=== PATIENT | female | born 1950 | race Caucasian/White ===

== ENCOUNTER 2020-02-09 06:26 | Day surgery (SDC) | payer MEDICARE, OTHER ==
[2020-02-09] MEDS ORDERED: Lidocaine 1% PF 2 ML SDV INJECT ONE (06:27)
[2020-02-09] MEDS ORDERED: Propofol 200 MG/20 ML SDV IV ONE (06:27)
[2020-02-09] MEDS ORDERED: Sodium Chloride 0.9% 10 ML Syringe FLUSH PRN (08:00)
[2020-02-09] MEDS ORDERED: Lactated Ringers 1,000 ML IV SCH (08:00)
[2020-02-09] MEDS ORDERED: Simethicone Drops 40 MG/0.6 ML 30 ML Bottle ONE (08:04)
--- NOTE | 2020-02-09 08:20 | PCM.OPNOTE ---
- General Post-Op/Procedure Note Date of Surgery/Procedure: 02/09/20 Operative Procedure(s): c scope Findings: nl exam Pre Op Diagnosis: screening Post-Op Diagnosis: nl exam Anesthesia Technique: MAC Primary Surgeon: Fred Martinez Anesthesia Provider: Rickey Coleman Pathology: none Complications: None Condition: Good Free Text/Narrative:: see dictation
[2020-02-09 09:01] VITALS: BP 122/70; PULSE 62
--- NOTE | 2020-02-09 11:56 | OR ---
DATE OF OPERATION: 02/09/2020 SURGEON: Fred Martinez MD PROCEDURE PERFORMED: Colonoscopy. PREOPERATIVE DIAGNOSIS: Routine colon cancer screening. POSTOPERATIVE DIAGNOSIS: Normal exam. INDICATIONS FOR PROCEDURE: This is a 69-year-old white female who presents for screening colonoscopy. She was offered and accepted same. DESCRIPTION OF OPERATION: After an excellent IV sedation was administered, digital rectal exam was performed. No marked abnormality was noted. Flexible colonoscope was inserted and advanced to the cecum. Prep was excellent. Following findings were noted: Ascending colon, unremarkable. Transverse colon, unremarkable. Descending colon, unremarkable. Sigmoid and rectum, unremarkable. The patient tolerated the procedure well. RECOMMENDATIONS: Given her age, a scope can be considered in 10 years. Follow up p.r.n. /[id number] /DEVI
== END 2020-02-09 09:04 | disposition home or self-care (01) ==
LOC: FB.SDS 06:26
PROVIDERS: ATTEND Surgery
DX: Z12.11 Encounter for screening for malignant neoplasm of colon (principal); E78.49 Other hyperlipidemia; I10 Essential (primary) hypertension; K21.9 Gastro-esophageal reflux disease without esophagitis; Z11.59 Encounter for screening for other viral diseases; Z79.899 Other long term (current) drug therapy; Z86.010 Personal history of colon polyps; Z98.890 Other specified postprocedural states
CPT/HCPCS: 00811-QZ; A9270-GY; J2001; J2704; J7120; U0002

== ENCOUNTER 2022-05-07 08:20 | Day surgery (SDC) | payer MEDICARE, OTHER ==
[2022-05-07] MEDS ORDERED: fentaNYL 100 MCG/2 ML SDV IV ONE (08:21)
[2022-05-07] MEDS ORDERED: Midazolam 1 MG/ML 2 ML SDV IV ONE (08:21)
[2022-05-07] MEDS ORDERED: Sodium Chloride 0.9% 10 ML Syringe FLUSH PRN (08:30)
[2022-05-07] MEDS ORDERED: Lactated Ringers 1,000 ML IV PRN (08:30)
[2022-05-07] MEDS ORDERED: acetaZOLAMIDE 500 MG Cap.ER PO ONE (10:30)
[2022-05-07 15:24] VITALS: BP 122/76; PULSE 65
== END 2022-05-07 10:40 | disposition home or self-care (01) ==
LOC: FB.SDS 08:20
PROVIDERS: ATTEND Ophthalmology
DX: H25.813 Combined forms of age-related cataract, bilateral (principal); H35.3131 Nonexudative age-related macular degeneration, bilateral, early dry stage; H04.123 Dry eye syndrome of bilateral lacrimal glands; H52.13 Myopia, bilateral; H52.223 Regular astigmatism, bilateral; H52.202 Unspecified astigmatism, left eye; I10 Essential (primary) hypertension; M35.3 Polymyalgia rheumatica; E78.49 Other hyperlipidemia; Z79.899 Other long term (current) drug therapy; E78.5 Hyperlipidemia, unspecified; E66.9 Obesity, unspecified; Z98.890 Other specified postprocedural states
CPT/HCPCS: 00142; 66984; A9270; J2250; J3010

== ENCOUNTER 2022-05-21 08:22 | Day surgery (SDC) | payer MEDICARE, OTHER ==
[2022-05-21] MEDS ORDERED: Sodium Chloride 0.9% 10 ML Syringe IV ONE (08:23)
[2022-05-21] MEDS ORDERED: fentaNYL 100 MCG/2 ML SDV IV ONE (08:23)
[2022-05-21] MEDS ORDERED: Midazolam 1 MG/ML 2 ML SDV IV ONE (08:23)
[2022-05-21] MEDS ORDERED: Lactated Ringers 1,000 ML IV PRN (08:30)
[2022-05-21] MEDS ORDERED: Sodium Chloride 0.9% 10 ML Syringe FLUSH PRN (08:30)
[2022-05-21] MEDS ORDERED: acetaZOLAMIDE 500 MG Cap.ER PO ONE (10:30)
[2022-05-21 11:28] VITALS: BP 103/57; PULSE 62
== END 2022-05-21 11:00 | disposition home or self-care (01) ==
LOC: FB.SDS 08:22
PROVIDERS: ATTEND Ophthalmology
DX: H25.813 Combined forms of age-related cataract, bilateral (principal); H35.3131 Nonexudative age-related macular degeneration, bilateral, early dry stage; H04.123 Dry eye syndrome of bilateral lacrimal glands; H52.13 Myopia, bilateral; H52.223 Regular astigmatism, bilateral; I10 Essential (primary) hypertension; E78.49 Other hyperlipidemia; M35.3 Polymyalgia rheumatica; E66.9 Obesity, unspecified; Z68.25 Body mass index [BMI] 25.0-25.9, adult; Z79.899 Other long term (current) drug therapy; Z98.890 Other specified postprocedural states
CPT/HCPCS: 00142-QZ; A9270-GY; J2250; J3010; J3490